=== PATIENT | male | born 1955 | race Caucasian/White ===

== ENCOUNTER 2017-01-19 03:58 | Emergency (ER) | payer MEDICARE ==
[~2017-01-19] VITALS: Ht 198.1 cm; Wt 149.7 kg
[~2017-01-19 03:58] MED LIST: LISINOPRIL 20MG20 MG PO
--- OUTSIDE RECORDS SUMMARY | 2017-01-19 04:08 | External Medical Summary Rpt ---
Author Author AUGUSTINA Address Unknown Phone [email or web address] Purpose Continuity of Care Document - through 2016
--- OUTSIDE RECORDS SUMMARY | 2017-01-19 04:08 | External Medical Summary Rpt ---
Author Author AUGUSTINA Address Unknown Phone [email or web address] Purpose Continuity of Care Document - through 2016
--- OUTSIDE RECORDS SUMMARY | 2017-01-19 04:08 | External Medical Summary Rpt ---
Author Author [employer] Organization [employer] Address Unknown Phone Unavailable Purpose Continuity of Care Document - through 2016
--- OUTSIDE RECORDS SUMMARY | 2017-01-19 04:09 | External Medical Summary Rpt ---
Demographics Preferred Language Divehi Marital Status Unknown Jainism Affiliation Unknown Race Unknown Ethnic Group Unknown Author Author AUGUSTINA Address Unknown Phone Immunization No patient found.
--- OUTSIDE RECORDS SUMMARY | 2017-01-19 04:09 | External Medical Summary Rpt ---
Author Author AUGUSTINA Kim, [employer] Organization [employer] Address Unknown Phone Unavailable
--- OUTSIDE RECORDS SUMMARY | 2017-01-19 04:09 | External Medical Summary Rpt ---
Demographics Preferred Language Turkish Marital Status Unknown Yazidi Affiliation Unknown Race Unknown Ethnic Group Unknown Author Author AUGUSTINA Address Unknown Phone Immunization No patient found.
[2017-01-19 04:24] LABS: HEMOGLOBIN 16.2 g/dL (14.1-18.0); LYMPH # 2.1 K/mm3 (0.7-4.5); LYMPH % 21.1 % (10-50)
[2017-01-19 04:43] LABS: BUN 21 mg/dL (7-18)
[2017-01-19 04:46] LABS: GFR (ESTIMATED) 68 ML/MIN (>60)
[2017-01-19 06:06] LABS: URINE BILIRUBIN - DIPSTICK NEGATIVE (NEG); URINE BLOOD NEGATIVE (NEG)
[2017-01-19 06:07] LABS: URINE SQUAMOUS CELLS OCC #/hpf (OCC)
[2017-01-19 06:24] LABS: AMPHETAMINES/METAMPHETAMINES NEGATIVE ng/mL (<1000)
--- NOTE | 2017-01-19 06:45 | Emergency Room Report ---
History of Present Illness Time Seen by [id number] Presenting Problem in Triage Pt arrived:Ambulance Stretcher Presenting Problem:awoke from sleep with sever abdominal pain, diaphorsis and htn Onset of symptoms date/time:01/19/17 or onset unknown for: Treatment Prior to Arrival: STEEL FINISHER Provided by: Sepsis Risk Assessment: Temp: 97.7 B/P: 162/92 MAP: 122 Pulse: 74 Resp: 14 Recent fever? N Clinical Suspician of Infection? N Mental Status: 1 - Regular (Normal Baseline) Sepsis Risk:Low Sepsis Risk Have you (or family members/close friends) recently traveled outside the [place]? N If Yes, where/when: Have you had exposure to infectious disease within the past month? N TB? Other? Specify: Source patient, RN notes reviewed, EMS, old records Exam Limitations no limitations Comment pt with abd pain with assoc vomiting with no chest pain - no melena or diarrhea and no fever Cardiac Chest Pain Chest pain indicative of cardiac No Timing/Duration this morning Severity moderate ALLERGIES Coded Allergies: No Known Allergies (01/19/17) Home Medications Reported Medications LISINOPRIL (Lisinopril) 20 MG PO DAILY History Medical History General CAD? No Angina: No IN: No Hypertension? Yes Hyperlipidemia? No CHF? No DVT? No PE? No COPD? No Asthma? No Anemia? No GERD? No Gastric ulcers? No GI Bleed? No Hernia? No Thyroid Problems? No Hypothyroidism? No CVA? No Seizures? No Diabetes? No Renal Insuffiency? No End Stage Renal Disease? No UTI? No Stones? No BPH? No GB Disease: Yes Nephritic Syndrome? No Asplenia? No Hepatitis? No Sickle Cell Disease? No Arthritis? No Migraines? No Cataracts? No Glaucoma? No MRSA? No HIV? No TB? No Anxiety? No Depression? Yes Cancer? No More? 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 Respiratory denies cough, denies shortness of breath, denies wheezing Cardiovascular denies chest pain, denies palpitations, denies syncope Gastrointestinal see HPI, abdominal pain, nausea, vomiting Genitourinary denies: dysuria, frequency, hesitancy, hematuria. Musculoskeletal denies back pain, denies joint pain, denies neck pain Skin denies rash Psychiatric/Neurological denies headache, denies seizure Physical Exam Vital Signs Vital Signs Date Time Temp Pulse Resp B/P Pulse O2 O2 Flow FiO2 Ox Delivery Rate 01/19 0700 97.7 80 14 128/79 93 2 01/19 0601 97.7 74 14 162/92 93 2 01/19 0454 97.7 74 14 144/86 93 01/19 0401 97.7 70 14 161/103 97 - WBC >12,000 or <4,000 or 10% bands? 2 or more SIRS Criteria Met? B/P:128/79 MAP:122 Creatinine >2.0? UA output<0.5ml/kg/hr for 2 hrs? Platelet count >100,000? Lactate >2.0mmol/1? INR >1.2 or PTT > than 60 sec? Evidence of Organ Dysfunction? Provider documented clinical suspician of infection? N Sepsis Criteria Count: 0 Sepsis Risk: Low Sepsis Risk General Appearance no apparent distress Eye Exam - bilateral eye PERRL, bilateral eye EOMI Comment no icterus Ear, Nose, Throat normal ENT inspection Neck supple Respiratory Status No: respiratory distress. Lung Sounds bilateral: lungs clear. 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 No Results/Orders Laboratory Tests 01/19/17 0650: Troponin I < 0.02 01/19/17 0559: Opiates Screen POSITIVE H, Urine Methadone Screen NEGATIVE, Barbiturates NEGATIVE, Phencyclidine Screen NEGATIVE, Amphetamines Screen NEGATIVE, Benzodiazepines Screen NEGATIVE, Cocaine Screen NEGATIVE, Marijuana (THC) Screen NEGATIVE, Urine Color YELLOW, Urine Appearance CLEAR, Urine pH 6.0, Ur Specific [place] >= 1.030, Urine Protein 1+ H, Urine Ketones NEGATIVE, Urine Blood NEGATIVE, Urine Nitrate NEGATIVE, Urine Bilirubin NEGATIVE, Urine Urobilinogen 0.2, Ur Leukocyte Esterase NEGATIVE, Urine RBC 3-5, Ur Squamous Epith Cells OCC, Amorphous Sediment TRACE, Urine Mucus 3+, Urine Glucose NEGATIVE 01/19/17 0400: Sodium 142, Potassium 3.7, Chloride 106, Carbon Dioxide 28, BUN 21 H, Creatinine 1.1, Estimated Creat Clear 149, Estimated GFR (MDRD) 68, Glucose 124 H, Calcium 8.9, Total Bilirubin 0.7, AST 23, ALT 33, Alkaline Phosphatase 77, Creatine Kinase 79, CK-MB (CK-2) Rel Index 0.6, CK and CKMB Interp < 0.5, Troponin I < 0.02, Total Protein 7.9, Albumin 3.7, Globulin 4.2 H, Albumin/ Globulin Ratio 0.9 L, Amylase 45, Lipase 82, WBC 10.0, RBC 5.42, Hgb 16.2, Hct 48.4, MCV 89.3, RDW 13.3, Plt Count 208, MPV 7.6, Gran % 73.4, Gran # 7.4, Lymphocytes % 21.1, Monocytes % 3.1, Eosinophils % 1.8, Basophils % 0.5, Lymphocytes # 2.1, Monocytes # 0.3, Eosinophils # 0.2, Basophils # 0.1, PUBS MCHC 33.3, MCH 29.8 Current Medication Orders Sig/Frankie Start time Last Medication Dose Route Stop Time Status Admin Ondansetron HCl 4 MG ONCE ONE 01/19 415 DC 01/19 IV 01/20 416 0419 Sodium Chloride 10 ML PRN PRN 01/19 415 AC IV 01/20 0406 Sodium Chloride 1,000 ML .Q4H 01/19 415 AC 01/19 IV 01/19 0814 0410 Sodium Chloride 10 ML PRN PRN 01/19 415 AC IV 01/20 0407 Sodium Chloride 1,000 ML .STK-MED ONE 01/19 406 DC IV Ondansetron HCl 0 .STK-MED ONE 01/19 405 DC .ROUTE Orders Procedure Date/time Status DIET-NOTHING BY MOUTH 01/19 B Active TROPONIN I 01/19 0641 Complete DRUG ABUSE SCREEN (10) 01/[address] ABD & PELVIS W/O CONTRAST 07/16 0420 Active ELECTROCARDIOGRAM REQUEST 01/[address] SCAN REQ 01/19 040 Active CHEST-AP VIEW ONLY 01/19 040 Active IV SALINE LOCK 01/19 040 Active URINALYSIS/COMPLETE 01/19 0406 Complete LIPASE 01/19 0406 Complete COMPLETE METABOLIC PANEL 01/19 0406 Complete CBC WITH AUTO DIFF 01/19 040 Complete CARDIAC ENZYMES 01/19 040 Complete AMYLASE 01/19 0406 Complete CM/EKG CM/junior high school teacher Rhythm Normal Sinus Rhythm EKG non-spec. ST/Twave chgs XRAY/CT/US XRAY/CT/US 1 XRAY chest XR interpretation by reviewed by me Xray Results abnormal (cm) XRAY/CT/US 2 CT abdomen, pelvis CT interpretation by discussed w/radiologist Time results known: 0643 CT Results abnormal (ileus) Progress ED Progress Notes Date 01/19/17 Time 0750 Comment feeling good Departure Departure Time of Disposition 0749 Disposition DC Home or Self Care(routine) Clinical Impression Primary Impression: Ileus Condition STABLE Patient Instructions DI for Vomiting -- Adult Additional Instructions fluids and recheck if any problems Discharge Counseling Counseled pt/family regarding diagnosis, test results, medications/RX, follow up needs ED Critical Care Critical Care No at 0750
[2017-01-19 07:56] VITALS: BP 149/68
--- NOTE | 2017-01-19 09:03 | RADIOLOGY REPORT PS360 ---
CT ABD PELVIS W/O CONTRAST COMPARISON: None HISTORY: , nausea and vomiting, hypertension TECHNIQUE: Multiaxial scans obtained from hemidiaphragms the pelvic floor and were performed without IV or oral contrast. Sagittal coronal reformats were evaluated as well. FINDINGS: The lower lung davidson are clear, cardiac size is normal. Liver and spleen appear normal. The stomach is moderately distended with ingested fluid and food particles area the pancreas appears normal. There has been a previous cholecystectomy. The adrenal glands are normal. The kidneys are normal size and there are no calculi and is no obstructive uropathy. There is mild fluid-filled dilatation of the duodenal sweep and proximal small bowel. There is mild tapered change to normal caliber small bowel mid and distal location. There is no obvious transition zone and the appearance suggests a mild adynamic ileus. There is a moderate size umbilical hernia containing fat only measuring 4.2 x 4.1 cm. What appears be the appendix is rather small and there are certainly are no pericecal cecal inflammatory changes. There is a moderate amount stool in ascending and transverse colon. There are mild diverticular changes of the sigmoid colon with accentuation of the haustral folds. Urinary bladder is partially decompressed, the prostate is normal. There is minor degenerative disc disease at L3-4 level. IMPRESSION: Fluid-filled mildly dilated loops of proximal and mid small bowel likely reflecting a mild ileus and/or gastroenteritis view of the dilated stomach., Doubt obstruction. Other nonacute findings as described, I agree the [facility] report
--- NOTE | 2017-01-19 09:04 | RADIOLOGY REPORT PS360 ---
CHEST-AP VIEW ONLY COMPARISON: None HISTORY: Shortness of TECHNIQUE: AP upright chest FINDINGS: Lung davidson are well expanded and appear clear of infiltrate. The cardiac silhouette and vascularity are normal and the costo phrenic angles are clear. IMPRESSION: Negative portable chest
== END 2017-01-19 07:58 | disposition home or self-care (01) ==
LOC: ER 03:58
PROVIDERS: Emergency Medicine
DX: K56.7 Ileus, unspecified (principal); I10 Essential (primary) hypertension; Z79.899 Other long term (current) drug therapy
CPT/HCPCS: J2405

== ENCOUNTER → 2017-03-12 | Outpatient (CLI) | payer MEDICARE ==
--- NOTE | 2017-03-13 12:55 | RADIOLOGY REPORT PS360 ---
MRI-L-SPINE W/O, MRI-3D RENDERING/MYELOGRAM HISTORY: LUMBAGO WITH SCIATICA Low back pain. History of back surgery. Left-sided low back pain with pain and numbness and tingling radiating into the left leg. Worsening symptoms in the past month. Left leg weakness. ORDERING PHYSICIAN: Tali JOHNS PATIENT AGE: 62 years COMPARISON: None TECHNIQUE: Standard multiplanar multiecho sequences are performed without contrast. 3-D MIP and myelographic images are also rendered and reviewed FINDINGS: There is normal alignment. The spinal cord ends at the L1-L2 level. L1-L2 and L2-L3 have an unremarkable appearance. L3-L4: Degenerative disc disease with bulging disc and small central disc protrusion along with facet and ligamentum flavum hypertrophy. There is moderate bilateral lateral recess and foraminal narrowing. A small central disc protrusion does cause some impingement upon the injury aspect of the thecal sac. There is mild transverse narrowing of the canal from the facet and ligamentum flavum hypertrophy L4-L5: Mild degenerative disc disease. There is a Schmorl's node along the inferior endplate of L4 on the right. There is mild bulging disc at this level as well as moderate facet and ligamentum flavum hypertrophy with transverse narrowing of the canal. Moderate right-sided foraminal narrowing and right lateral recess narrowing and moderate left sided foraminal and lateral recess narrowing. L5-S1: Moderate facet and ligamentum hypertrophy with moderate bilateral foraminal narrowing greater on the left. IMPRESSION: 1. Degenerative disc disease L3-L4 with bulging disc and small central disc protrusion along with facet and ligamentum flavum hypertrophy. There is moderate bilateral lateral recess and foraminal narrowing. A small central disc protrusion does cause some impingement upon the injury aspect of the thecal sac. There is mild transverse narrowing of the canal from the facet and ligamentum flavum hypertrophy 2. Degenerative disc disease L4-L5 with mild bulging disc at this level as well as moderate facet and ligamentum flavum hypertrophy with transverse narrowing of the canal. Moderate right-sided foraminal narrowing and right lateral recess narrowing and moderate left sided foraminal and lateral recess narrowing. 3. Moderate facet and ligamentum hypertrophy L5-S1 with moderate bilateral foraminal narrowing greater on the left. IMPRESSION:
== END ==
LOC: RAD 15:07
DX: M54.40 Lumbago with sciatica, unspecified side (principal); R29.898 Other symptoms and signs involving the musculoskeletal system; Z98.890 Other specified postprocedural states